=== PATIENT | female | born 1960 | race Caucasian/White ===

== ENCOUNTER 2023-06-14 05:40 | Day surgery (SDC) | payer OTHER ==
[~2023-06-14] VITALS: Ht 152.4 cm; Wt 77.1 kg
[2023-06-14] MEDS ORDERED: SCOPOLAMINE HYDROBROMIDE 1 MG PATCH .72 H (TRANSDERM-SCOP) TD ONE (05:48)
[2023-06-14] MEDS ORDERED: oxyCODONE HCL 10 MG TAB.ER.12H PO ONE (05:48)
[2023-06-14] MEDS ORDERED: CELECOXIB 100 MG CAPSULE ONE (05:48)
[2023-06-14] MEDS ORDERED: ACETAMINOPHEN 500 MG TABLET ONE (05:48)
[2023-06-14] MEDS ORDERED: GABAPENTIN 300 MG CAPSULE ONE (05:49)
[2023-06-14] MEDS: SCOPOLAMINE HYDROBROMIDE 1 MG PATCH .72 H (TRANSDERM-SCOP) TD ONE (06:15)
[2023-06-14] MEDS: GABAPENTIN 300 MG CAPSULE PO ONE (06:15)
[2023-06-14] MEDS: CELECOXIB 100 MG CAPSULE PO ONE (06:15)
[2023-06-14] MEDS: ACETAMINOPHEN 500 MG TABLET PO ONE (06:15)
[2023-06-14 07:02] VITALS: PULSE 68; RESP 18; TEMP 97.6; O2SAT 100
[2023-06-14] MEDS: oxyCODONE HCL 10 MG TAB.ER.12H PO ONE (07:30)
[2023-06-14] MEDS ORDERED: BISACODYL 10 MG/SUPPOSITORY RC PRN (07:30)
[2023-06-14] MEDS ORDERED: METOCLOPRAMIDE HCL 10 MG/2 ML VIAL IVP PRN (07:30)
[2023-06-14] MEDS ORDERED: DEXAMETHASONE SOD PHOSPHATE 4 MG/ML VIAL ONE (07:30)
[2023-06-14] MEDS ORDERED: ceFAZolin SODIUM 2 GM in D5W 100 ML IV ONE (07:30)
[2023-06-14] MEDS ORDERED: DIPHENHYDRAMINE HCL 25 MG CAPSULE PO PRN (07:30)
[2023-06-14] MEDS ORDERED: LACTULOSE 20 GM/30 ML UDC PO PRN (07:30)
[2023-06-14] MEDS ORDERED: LR 1,000 ML IV SCH (08:30)
[2023-06-14] MEDS ORDERED: MEPERIDINE HCL/PF 25 MG/ML DISP.SYRIN IVP PRN (08:30)
[2023-06-14] MEDS ORDERED: HYDROmorphone 1 MG/ML INJ. CARTRIDGE IVP PRN ×3 (08:30→11:00)
[2023-06-14] MEDS ORDERED: HYDROmorphone 1 MG/ML INJ. CARTRIDGE ONE ×2 (10:40→10:48)
[2023-06-14] MEDS: HYDROmorphone 1 MG/ML INJ. CARTRIDGE IVP PRN ×2 (10:50→11:05)
[2023-06-14 10:57] VITALS: BP_SYST 122
[2023-06-14] MEDS ORDERED: traMADol HCL HCL 50 MG TABLET (ULTRAM) PO PRN (11:00)
[2023-06-14] MEDS ORDERED: LORATADINE 10 MG TABLET PO PRN (11:00)
[2023-06-14] MEDS ORDERED: oxyCODONE HCL 5 MG TABLET PO PRN ×2 (11:00)
[2023-06-14] MEDS ORDERED: ONDANSETRON HCL 4 MG/2 ML VIAL IVP PRN (11:45)
[2023-06-14] MEDS ORDERED: METOCLOPRAMIDE HCL 10 MG/2 ML VIAL ONE (13:53)
[2023-06-14] MEDS ORDERED: KETOROLAC TROMETHAMINE 10 MG TABLET (TORADOL) PO SCH (14:00)
[2023-06-14] MEDS: METOCLOPRAMIDE HCL 10 MG/2 ML VIAL IVP PRN (14:00)
[2023-06-14] MEDS ORDERED: ACETAMINOPHEN 500 MG TABLET PO SCH (14:00)
[2023-06-14] MEDS ORDERED: SENNOSIDES/DOCUSATE SODIUM 1 TAB TABLET(SENOKOT-S) PO SCH (21:00)
[2023-06-15] MEDS ORDERED: ASPIRIN 81 MG TAB.CHEW PO SCH (09:00)
[2023-06-15] MEDS ORDERED: CELECOXIB 200 MG CAPSULE PO SCH (11:00)
== END 2023-06-14 15:00 | disposition home or self-care (01) ==
LOC: SDS 05:40 → SMU 05:40 → EDSTATUS 07:30 → SDS 15:00
PROVIDERS: ATTEND Student in an Organized Health Care Education/Training Program
DX: M17.12 Unilateral primary osteoarthritis, left knee (principal); E78.5 Hyperlipidemia, unspecified; Z98.891 History of uterine scar from previous surgery; Z98.890 Other specified postprocedural states; Z88.2 Allergy status to sulfonamides; Z79.899 Other long term (current) drug therapy
CPT/HCPCS: 87081; 27447; 97162; 64447; 73560; 97110; 97530; 97116; 88305; 88311; J3490 ×2; J0696; J1100; J2765; J2250; J2405; J3370; J3010; J1170; J7060; J7120; J7030; C1776 ×3